=== PATIENT | female | born 1970 | race Caucasian/White ===

== ENCOUNTER 2021-05-17 10:57 | Emergency (ER) | payer OTHER, SELFPAY ==
[2021-05-17 11:03] VITALS: BP 151/97; PULSE 78; RESP 18; TEMP 36.7; O2SAT 98
--- NOTE | 2021-05-17 11:18 | ED.URI ---
HPI - URI/Sore Throat General Chief Complaint: Upper Respiratory Infection Stated Complaint: URI Time Seen by Provider: 05/17/21 11:19 Source: patient, family, RN notes reviewed and old records reviewed Mode of arrival: ambulatory Limitations: no limitations History of Present Illness HPI Narrative: 50 yo female presents to the [facility] with C/O cough, intermittent SOB with cough, congestion, runny nose, wheezing for 3 days. Denies chest pain, abdoinal pain, fever. +Covid vaccine - flu vaccine Related Data Home Medications Medication Instructions Recorded Confirmed naproxen sodium [Aleve] 440 mg PO DAILY 05/17/21 05/17/21 Allergies Allergy/AdvReac Type Severity Reaction Status Date / Time Penicillins Allergy Unknown UNKNOWN Verified 07/12/17 11:54 COCNUT Allergy Mild Uncoded 11/11/09 01:57 Review of Systems Review of Systems: All systems reviewed & are unremarkable except as noted in HPI and below Constitutional: Constitutional: Reports no additional constitutional complaints, Denies chills, Denies fever(s) and Denies headache(s) Eyes: Eyes: Reports no additional eye complaints ENT: Reports as per HPI, Denies vertigo, Denies dizziness, Denies headache(s), Reports nasal congestion and Denies sore throat Cardiovascular: Cardiovascular: Reports no additional cardiovascular complaints, Denies chest pain, Denies syncope, Denies rapid heart rate and Denies dyspnea Respiratory: Respiratory: Reports as per HPI, Reports chest congestion, Reports cough, Denies dyspnea and Reports wheezing Gastrointestinal: Gastrointestinal: Reports no additional gastrointestinal complaints, Denies abdominal pain, Denies diarrhea, Denies nausea and Denies vomiting Musculoskeletal: Musculoskeletal: Reports no additional musculoskeletal complaints and Denies numbness Integumentary/Breasts: Skin/Breast: Reports system reviewed and no additional complaints, except as docu Neurologic: Reports system reviewed and no additional complaints, except as documented, Denies vertigo, Denies dizziness, Denies syncope, Denies headache(s), Denies focal weakness and Denies numbness Psychiatric: Psychiatric: Reports no additional psychiatric complaints Allergic/Immunologic: Allergic/Immunologic: Reports no additional allergic/immunologic complaints and Denies wheezing PMFSH Social History Social History Smoking status: Current every day smoker Living arrangements: with family Gender identity (if verbalized by the patient): Female Comments At the time of my signature, I reviewed and agree with the nursing past medical, surgical, social, and family history. There is no relevant family history pertinent to the patient complaint. Exam Const: General: cooperative, healthy appearing, no acute distress, well developed and alert Nutritional Appearance: well nourished and obese Orientation/consciousness: patient oriented x3 Limitations: no limitations HENMT: Head: normal to inspection Ears: external ears normal, TM's normal bilaterally and EAC's normal General nose exam: Normal external nose present, Normal nasal mucous membranes and turbinates present and No nasal discharge present Face and sinus: normal facial exam Mouth: Yes Normal oral and palatal mucosa present Throat: posterior oropharynx normal, uvula midline, postnasal drainage and tonsils present Eyes: Conjunctivae: conjunctivae normal Pupils: Equal, round and reactive pupils present Neck: Neck: normal visual inspection, no lymphadenopathy and no meningeal signs Chest: Chest palpation & inspection: normal inspection of the chest Resp: Effort & Inspection: normal respiratory effort and no use of accessory muscles Auscultation: clear to auscultation bilaterally, no crackles, no rales, no rhonchi and wheezes throughout Cardio: Rate: regular rate Rhythm: regular rhythm Back/Spine/Pelvis: Back: no CVA tenderness Skin: General skin e
== END 2021-05-17 11:38 | disposition home or self-care (01) ==
PROVIDERS: Emergency Provider Nurse Practitioner; PCP Registered Nurse
DX: J40 Bronchitis, not specified as acute or chronic (principal); F17.200 Nicotine dependence, unspecified, uncomplicated; M19.90 Unspecified osteoarthritis, unspecified site
CPT/HCPCS: 99213; G0463

== ENCOUNTER 2022-03-26 14:15 | Emergency (ER) | payer OTHER, SELFPAY ==
[2022-03-26 14:45] VITALS: BP 131/85; PULSE 75; RESP 16; TEMP 36.8; O2SAT 98
[2022-03-26 16:35] LABS: Basophils Absolute Auto 0.1 K/mm3 (0.0-0.1); Basophils Percent Auto 0.6 % (0.2-1.2); Eosinophils Absolute Auto 0.2 K/mm3 (0-0.3); Eosinophils Percent Auto 1.7 % (0-4.4); Hematocrit 52.8 % (37.0-47.0); Immature Granulocyte Absolute 0.05 K/mm3 (0.00-0.031); Immature Granulocyte Percent A 0.5 % (0-0.5); Lymphocytes Absolute Auto 2.72 K/mm3 (0.9-3.2); Lymphocytes Percent Auto 27.8 % (18.3-44.2); Mean Corpuscular HGB Conc 32.2 g/dl (32-36); Mean Corpuscular Hemoglobin 29.5 pg (26-34); Mean Corpuscular Volume 91.7 fl (80-100); Mean Platelet Volume 10.6 fl (7.4-10.4); Monocytes Absolute Auto 0.7 K/mm3 (0.1-0.6); Monocytes Percent Auto 6.8 % (2.6-8.5); Neutrophils Absolute Auto 6.1 K/mm3 (1.3-6.7); Neutrophils Percent Auto 62.6 % (45.5-73.1); Platelet Count Result 259 k/mm3 (150-375); Red Blood Count 5.76 M/mm3 (4.2-5.4); Red Cell Distribution Width 13.7 % (11.5-14.5); White Blood Count 9.8 K/mm3 (4.5-10.0)
[2022-03-26 16:36] LABS: Add Urine Microscopic? YES; Appearance Urine Cloudy (Clear); Bilirubin Urine Negative (Negative); Blood Urine Negative (Negative); Color Urine Yellow (Yellow); Glucose Urine UA Negative (Negative); Ketones Urine Negative (Negative); Leukocyte Esterase Ur Trace LEU/UL (Negative); Nitrate Urine Negative (Negative); Protein Urine Negative (Negative); Urobilinogen Urine 0.2 mg/dL (<2.0)
[2022-03-26 16:43] LABS: Bacteria Urine Trace /hpf; RBC Urine 0-2 /hpf (0-2); Squamous Epithelial Cell Urine Many /hpf (Few)
[2022-03-26 16:53] LABS: Alanine Aminotransferase 20 U/L (6-35); Albumin Level 4.4 g/dL (3.5-5.1); Alkaline Phosphatase 80 U/L (38-126); Anion Gap 5 mmol/L (8-16); Aspartate Amino Transferase 23 U/L (14-36); Bilirubin,Total 0.4 mg/dL (0.2-1.3); Blood Urea Nitrogen 16 mg/dL (7-17); Calcium 8.7 mg/dL (8.4-10.2); Carbon Dioxide 28 mmol/L (22-30); Chloride 106 mmol/L (98-107); Estimated CRCL calculation 153 ml/min; Estimated Glomerular Filt Rate > 60; Glucose 97 mg/dL (65-110); Lipase 103 U/L (23-300); Potassium 4.2 mmol/L (3.4-5.0); Sodium 139 mmol/L (137-145)
--- NOTE | 2022-03-26 17:11 | ED.GENADULT ---
HPI - General Adult General Chief complaint: Urogenital-Female Stated complaint: hematuria Time Seen by Provider: 03/26/22 15:35 History of Present Illness HPI narrative: Patient is a 51-year-old female who presents ER with concerns for rectal bleeding. Reports she felt like she had to defecate and sat on the stool and had some gas come out but no stool. She then wiped herself and noticed blood on the toilet paper. She had no urinary frequency urgency or dysuria. No blood in her urine no blood in the toilet. Became concerned because her significant other had a life-threatening GI bleed in the past. Patient is on no blood thinners. Related Data Home Medications Medication Instructions Recorded Confirmed naproxen sodium 220 mg capsule 440 mg PO DAILY 05/17/21 05/17/21 (Aleve) Allergies Allergy/AdvReac Type Severity Reaction Status Date / Time Penicillins Allergy Unknown UNKNOWN Verified 07/12/17 11:54 COCNUT Allergy Mild Uncoded 11/11/09 01:57 Review of Systems Constitutional: Constitutional: Reports no additional constitutional complaints Cardiovascular: Cardiovascular: Reports no additional cardiovascular complaints Respiratory: Respiratory: Reports no additional respiratory complaints Gastrointestinal: Gastrointestinal: Reports no additional gastrointestinal complaints Genitourinary: Genitourinary: Reports no additional female genitourinary complaints [facility] Past Medical History Medical History (Updated 03/26/22 @ 17:17 by David Bates MD) History of stroke Surgical History Surgical History (Updated 03/26/22 @ 17:14 by David Bates MD) History of cholecystectomy S/P patent foramen ovale closure Social History Social History Smoking status: Current every day smoker Gender identity (if verbalized by the patient): Female Exam Narrative: GENERAL: Well-appearing, well-nourished, and in no acute distress. HEAD: Normocephalic, atraumatic. CHEST: Clear to auscultation. No respiratory distress. HEART: Regular rate and rhythm. Normal peripheral pulses. ABDOMEN: Soft, nontender, nondistended, normal active bowel sounds. Done with small developing external hemorrhoid in the right side 12 o'clock position bilateral decubitus position. Firm stool on digital rectal exam without gross blood and Hemoccult negative. EXTREMITIES: Normal range of motion. No edema. SKIN: Warm, dry, no rash. NEURO: Alert and oriented x3. PSYCH: Normal mood and affect. Course Course Emergency Course: Patient with new diagnosis external hemorrhoids. Recommend external treatment with Tucks pads. Also recommend Anusol if necessary. Follow-up with PCP. Need stool softeners. Blood work reviewed hemoglobin slightly elevated which is nonspecific at this time. Patient has had elevated hemoglobins in the past. No hypertension. Vital Signs Vital signs: Vital Signs Temperature 98.2 F 03/26/22 14:45 Pulse Rate 75 03/26/22 14:45 Respiratory Rate 16 03/26/22 14:45 Blood Pressure 131/85 03/26/22 14:45 Pulse Oximetry 98 03/26/22 14:45 Oxygen Delivery Room Air 03/26/22 14:45 Temperature 98.2 F 03/26/22 14:45 Pulse Rate 75 03/26/22 14:45 Respiratory Rate 16 03/26/22 14:45 Blood Pressure 131/85 03/26/22 14:45 Pulse Oximetry 98 03/26/22 14:45 Oxygen Delivery Room Air 03/26/22 14:45 Medical Decision Making Vital Signs Vital Signs: Vital Signs Temperature 98.2 F 03/26/22 14:45 Pulse Rate 75 03/26/22 14:45 Respiratory Rate 16 03/26/22 14:45 Blood Pressure 131/85 03/26/22 14:45 Pulse Oximetry 98 03/26/22 14:45 Oxygen Delivery Room Air 03/26/22 14:45 Temperature 98.2 F 03/26/22 14:45 Pulse Rate 75 03/26/22 14:45 Respiratory Rate 16 03/26/22 14:45 Blood Pressure 131/85 03/26/22 14:45 Pulse Oximetry 98 03/26/22 14:45 Oxygen Delivery Room Air 03/26/22 14:45 Lab Da
== END 2022-03-26 17:28 | disposition home or self-care (01) ==
PROVIDERS: Emergency Provider Emergency Medicine; PCP Registered Nurse
DX: K64.4 Residual hemorrhoidal skin tags (principal)
CPT/HCPCS: 36415; 80053; 81001; 83690; 85025; 99283

== ENCOUNTER 2022-05-05 00:22 | Day surgery (SDC) | payer OTHER, SELFPAY ==
[2022-04-24 14:44] VITALS: BMI 43.9
--- NOTE | 2022-05-04 14:59 | P.HP_ITS ---
History of Present Illness History of Present Illness Consent: Risks, benefits, and alternatives have been discussed and questions answered. Patient agrees to proceed with procedure. Chief complaint: neoplasm screening Narrative: Carmen Verma is a 51 year old female Was referred for colon cancer screening. Review of Systems Review of Systems: All systems reviewed & are unremarkable except as noted in HPI and below PMFSH Past Medical History Medical History (Updated 05/04/22 @ 14:59 by Arian Salamanca MD) History of stroke Surgical History Surgical History (Updated 03/26/22 @ 17:14 by David Bates MD) History of cholecystectomy S/P patent foramen ovale closure Social History Social History Smoking packs per day: 2 Smoking cigarettes per day: 40.0 Smoking status: Current every day smoker Tobacco type: cigarettes Alcohol intake: former Alcohol use details: 1 EVERY OTHER MONTH Substance use: never Substance use type: does not use Living arrangements: with family Gender identity (if verbalized by the patient): Female Spiritual care concerns: No Meds Home Medications and Allergies Home Medications Medication Instructions Recorded Confirmed Type albuterol sulfate 90 mcg/actuation 2 puff inhalation QID PRN 05/17/21 04/24/22 Rx aerosol inhaler shortness of breath or wheezing #6.7 grams inhalational spacing device (Space #1 ea 05/17/21 04/24/22 Rx Chamber) naproxen sodium 220 mg capsule 440 mg PO DAILY 05/17/21 04/24/22 History (Aleve) docusate sodium 100 mg capsule 100 mg PO BID PRN constipation #14 03/26/22 04/24/22 Rx (Colace) caps Allergies Allergy/AdvReac Type Severity Reaction Status Date / Time Penicillins Allergy Unknown UNKNOWN Verified 05/05/22 10:18 COCNUT Allergy Mild Hives Uncoded 05/05/22 10:18 Exam Const: General: alert Nutritional Appearance: obese Orientation/conscio usness: patient oriented x3 Resp: Auscultation: clear to auscultation bilaterally Cardio: Rhythm: regular rhythm GI: GI Palp: Yes Soft to palpation and No Tenderness to palpation present (GI) Neuro: General: patient oriented x3 Assessment and Plan Assessment and plan (1) Colon cancer screening: Code(s): Z12.11 - Encounter for screening for malignant neoplasm of colon Status: Acute Assessment and Plan: Colonoscopy with possible biopsy or polypectomy or cautery or injection of substances.
[2022-05-05 10:19] VITALS: BP 136/79; PULSE 69; RESP 18; TEMP 36.3; O2SAT 98
[2022-05-05] MEDS: LACTATED RINGERS 1,000 ML 150 ML IV CONT (10:30)
--- NOTE | 2022-05-05 11:24 | WPDANESEPPF ---
Anes - Initial Pre Proc Eval Procedure: Operation Date: 05/05/22 11:30 Proposed Procedures p Screening Colonoscopy - Arian Salamanca MD Date/Time: 05/05/22 11:24 Surgeon: Arian Salamanca MD Pre Op Diagnosis: neoplasm screening Patient Data Age: 51 Gender: F Height: 1.8 m Weight: 138.2 kg Last Vital Signs Temp 97.3 F L 05/05/22 10:19 Pulse 69 05/05/22 10:19 Resp 18 05/05/22 10:19 BP 136/79 05/05/22 10:19 Pulse Ox 98 05/05/22 10:19 O2 Del Method Room Air 05/05/22 10:19 Allergies Allergy/AdvReac Type Severity Reaction Status Date / Time Penicillins Allergy Unknown UNKNOWN Verified 05/05/22 10:18 COCNUT Allergy Mild Hives Uncoded 05/05/22 10:18 Home Medications Medication Instructions Recorded Confirmed Type albuterol sulfate 90 mcg/actuation 2 puff inhalation QID PRN 05/17/21 04/24/22 Rx aerosol inhaler shortness of breath or wheezing #6.7 grams inhalational spacing device (Space #1 ea 05/17/21 04/24/22 Rx Chamber) naproxen sodium 220 mg capsule 440 mg PO DAILY 05/17/21 04/24/22 History (Aleve) docusate sodium 100 mg capsule 100 mg PO BID PRN constipation #14 03/26/22 04/24/22 Rx (Colace) caps Patient hx anesthesia problems: none Family hx anesthesia problems: none Results Review: All pre-operative results and documents have been reviewed as part of the pre-operative evaluation. [facility] Past Medical History Medical History (Updated 05/04/22 @ 14:59 by rAian Salamanca MD) History of stroke Surgical History Surgical History (Updated 03/26/22 @ 17:14 by David Bates MD) History of cholecystectomy S/P patent foramen ovale closure Social History Social History Smoking packs per day: 2 Smoking cigarettes per day: 40.0 Smoking status: Current every day smoker Tobacco type: cigarettes Alcohol intake: former Alcohol use details: 1 EVERY OTHER MONTH Substance use: never Substance use type: does not use Living arrangements: with family Gender identity (if verbalized by the patient): Female Spiritual care concerns: No Anes - Eval Final PreProcedure Day of Procedure 05/05/22 11:24 Patient weight: morbidly obese Heart: regular rate and rhythm Lungs: clear to auscultation Airway: Mallampati scale class II Neurological: alert and oriented Last oral intake: >/= 8 hours ASA classification: III Emergent: no Anesthetic plan: proceed Anesthesia type and monitoring: general GIVS and standard monitoring Results Review: All pre-operative results and documents have been reviewed as part of the pre-operative evaluation. Informed Consent: The patient's anesthetic plan and its attendant risks and benefits were discussed with the patient/family/POA. Questions were solicited and answers provided to the satisfaction of the patient/family/POA.
[2022-05-05 11:45] VITALS: BP 119/83; PULSE 70; RESP 17; O2SAT 98
[2022-05-05 11:55] VITALS: BP 114/84; PULSE 61; RESP 18; O2SAT 99
[2022-05-05 12:05] VITALS: BP 137/93; PULSE 62; RESP 21; O2SAT 100
== END 2022-05-05 12:07 | disposition home or self-care (01) ==
PROVIDERS: PCP Registered Nurse; Visit Provider Internal Medicine Gastroenterology
PROC: 0DJD8ZZ Inspection of Lower Intestinal Tract, Via Natural or Artificial Opening Endoscopic (ICD-10-PCS; CPT 45378; principal; 2022-05-05 11:30)
DX: Z12.11 Encounter for screening for malignant neoplasm of colon (principal); Z86.73 Personal history of transient ischemic attack (TIA), and cerebral infarction without residual deficits; Z79.51 Long term (current) use of inhaled steroids; F17.210 Nicotine dependence, cigarettes, uncomplicated; E66.01 Morbid (severe) obesity due to excess calories; Z68.41 Body mass index [BMI] 40.0-44.9, adult
CPT/HCPCS: 45378; J2704; J7120